=== PATIENT | male | born 1980 | race Caucasian/White ===

== ENCOUNTER 2017-01-03 10:13 | Emergency (ER) | payer BC ==
--- NOTE | 2017-01-03 10:34 | EDM.PDOC ---
ED HPI GENERAL MEDICAL PROBLEM - General Chief Complaint: Abdominal Pain Stated Complaint: SIDE PAIN Time Seen by Provider: 01/03/17 10:22 Source of Information: Reports: Patient History Limitations: Reports: No Limitations - History of Present Illness INITIAL COMMENTS - FREE TEXT/NARRATIVE: pt has been working and lifting heavy materials the past couple of days. Yesterday while he was working he noticed a pain on his right side. The discomfort is mid right side abdomen. The pain intensifies with movement and stretching. Gets better when resting. Has not caused any nausea/vomiting, fever , dizziness, lightheadedness, sweating, bloody stools, or change in appetite Onset: Sudden Severity: Moderate Improves with: Reports: Immobilization Worsens with: Reports: Breathing, Movement Context: Reports: Activity Associated Symptoms: Reports: No Other Symptoms Right Upper Abdomen Pain Score (Numeric/FACES): 3 - Related Data Allergies Allergy/AdvReac Type Severity Reaction Status Date / Time No Known Allergies Allergy Verified 01/03/17 10:27 Home Meds: Home Meds Cyclobenzaprine [Flexeril] 10 mg PO TID #15 tablet 01/03/17 [Rx] Ketorolac [Toradol] 10 mg PO Q6H #15 tablet 01/03/17 [Rx] ED ROS GENERAL - Review of Systems Review Of Systems: See Below Constitutional: Reports: No Symptoms HEENT: Reports: No Symptoms Respiratory: Reports: No Symptoms Cardiovascular: Reports: No Symptoms Endocrine: Reports: No Symptoms GI/Abdominal: Reports: No Symptoms Musculoskeletal: Reports: Other (right side abdominal pain when moving) Skin: Reports: No Symptoms Neurological: Reports: No Symptoms ED EXAM, GI/ABD - Physical Exam Exam: See Below Exam Limited By: No Limitations General Appearance: Alert, WD/WN, No Apparent Distress Head: Atraumatic, Normocephalic Respiratory/Chest: No Respiratory Distress, No Accessory Muscle Use, Chest Non- Tender Cardiovascular: Normal Peripheral Pulses, Regular Rate, Rhythm GI/Abdominal Exam: Normal Bowel Sounds, Soft, No Organomegaly, No Distention, No Abnormal Bruit, No Mass, Pelvis Stable, Tender (rightside mid gastric region. negative rovsing, psoas and obturator signs. ) Course - Vital Signs Last Recorded V/S: Last Vital Signs Temp 37.1 C 01/03/17 10:28 Pulse 80 01/03/17 10:28 Resp 16 01/03/17 10:28 BP 145/94 H 01/03/17 10:28 Pulse Ox 98 01/03/17 10:28 Departure - Departure Time of Disposition: 10:35 Disposition: Home, Self-Care 01 Condition: Good Clinical Impression: Muscle strain - Discharge Information Prescriptions: Cyclobenzaprine [Flexeril] 10 mg PO TID #15 tablet Ketorolac [Toradol] 10 mg PO Q6H #15 tablet Instructions: Pain Medicine Instructions, [id number] Forms: ED Department Discharge
[2017-01-03 10:37] VITALS: BP 145/94
== END 2017-01-03 10:55 | disposition home or self-care (01) ==
LOC: VM.ED 10:13
DX: S39.011A Strain of muscle, fascia and tendon of abdomen, initial encounter (principal); X50.0XXA Overexertion from strenuous movement or load, initial encounter
CPT/HCPCS: 99283